=== PATIENT | male | born 1990 | race Caucasian/White ===

== ENCOUNTER → 2022-03-31 | Outpatient (CLI) | payer BC | LOC: WCC 12:54 | PROVIDERS: ATTEND Family Medicine Adult Medicine | DX: T81.32XA Disruption of internal operation (surgical) wound, not elsewhere classified, initial encounter (principal); U07.1 COVID-19; Y84.8 Other medical procedures as the cause of abnormal reaction of the patient, or of later complication, without mention of misadventure at the time of the procedure | CPT/HCPCS: 87071; 87075; 87186; 87205 ==

== ENCOUNTER → 2022-04-01 | Outpatient (CLI) | payer BC | LOC: WCC 14:02 | PROVIDERS: ATTEND Family Medicine Adult Medicine | DX: T81.32XA Disruption of internal operation (surgical) wound, not elsewhere classified, initial encounter (principal); Y84.8 Other medical procedures as the cause of abnormal reaction of the patient, or of later complication, without mention of misadventure at the time of the procedure; U07.1 COVID-19 ==

== ENCOUNTER → 2022-04-07 | Outpatient (CLI) | payer BC | LOC: WCC 13:47 | PROVIDERS: ATTEND Family Medicine Adult Medicine | DX: T81.32XA Disruption of internal operation (surgical) wound, not elsewhere classified, initial encounter (principal); Y84.8 Other medical procedures as the cause of abnormal reaction of the patient, or of later complication, without mention of misadventure at the time of the procedure; U07.1 COVID-19; B96.89 Other specified bacterial agents as the cause of diseases classified elsewhere ==

== ENCOUNTER → 2022-04-14 | Outpatient (CLI) | payer BC | LOC: WCC 14:55 | PROVIDERS: ATTEND Family Medicine Adult Medicine | DX: T81.32XA Disruption of internal operation (surgical) wound, not elsewhere classified, initial encounter (principal); Y84.8 Other medical procedures as the cause of abnormal reaction of the patient, or of later complication, without mention of misadventure at the time of the procedure; U07.1 COVID-19; B96.89 Other specified bacterial agents as the cause of diseases classified elsewhere ==

== ENCOUNTER → 2022-04-21 | Outpatient (CLI) | payer BC | LOC: WCC 14:33 | PROVIDERS: ATTEND Family Medicine Adult Medicine | DX: T81.32XA Disruption of internal operation (surgical) wound, not elsewhere classified, initial encounter (principal); Y84.8 Other medical procedures as the cause of abnormal reaction of the patient, or of later complication, without mention of misadventure at the time of the procedure; U07.1 COVID-19 ==

== ENCOUNTER → 2022-04-28 | Outpatient (CLI) | payer BC | LOC: WCC 12:43 | PROVIDERS: ATTEND Family Medicine Adult Medicine | DX: T81.32XA Disruption of internal operation (surgical) wound, not elsewhere classified, initial encounter (principal); Y84.8 Other medical procedures as the cause of abnormal reaction of the patient, or of later complication, without mention of misadventure at the time of the procedure; U07.1 COVID-19 ==

== ENCOUNTER → 2022-05-05 | Outpatient (CLI) | payer BC | LOC: WCC 12:35 | PROVIDERS: ATTEND Family Medicine Adult Medicine | DX: T81.32XA Disruption of internal operation (surgical) wound, not elsewhere classified, initial encounter (principal); Y84.8 Other medical procedures as the cause of abnormal reaction of the patient, or of later complication, without mention of misadventure at the time of the procedure; U07.1 COVID-19 ==